=== PATIENT | female | born 1940 ===

== ENCOUNTER 2017-10-07 10:01 | Inpatient (IN) | payer OTHER ==
[~2017-10-07] VITALS: Ht 162.6 cm; Wt 70.3 kg
[2017-10-07] MEDS ORDERED: DIOVAN40 MG PO (10:40)
[2017-10-07] MEDS ORDERED: SECTRAL PO (10:40)
[2017-10-07] MEDS ORDERED: CELEBREX200MG PO (10:40)
[2017-10-07] MEDS ORDERED: LEXAPRO20 MG PO (10:41)
[2017-10-07] MEDS ORDERED: GABAPENTIN100 MG PO (10:41)
[2017-10-16] MEDS ORDERED: PERCOCET 5-3251 EACH PO (13:17)
[2017-10-16] MEDS ORDERED: COLACE100 MG PO (13:17)
[2017-10-16] MEDS ORDERED: CLONAZEPAM1 MG PO (13:17)
== END 2017-10-16 19:45 | disposition home or self-care (01) | DRG 471 ==
LOC: O/R 11:45 → PED 10-15 15:15
PROVIDERS: Orthopaedic Surgery Orthopaedic Surgery of the Spine
PROC: 0RG20A0 Fusion of 2 or more Cervical Vertebral Joints with Interbody Fusion Device, Anterior Approach, Anterior Column, Open Approach (ICD-10-PCS; 2017-10-15)
PROC: 0RT30ZZ Resection of Cervical Vertebral Disc, Open Approach (ICD-10-PCS; principal; 2017-10-15 07:00)
DX: M47.12 Other spondylosis with myelopathy, cervical region (principal); S14.126A Central cord syndrome at C6 level of cervical spinal cord, initial encounter; M50.022 Cervical disc disorder at C5-C6 level with myelopathy; I10 Essential (primary) hypertension